=== PATIENT | female | born 1990 | race Caucasian/White ===

== ENCOUNTER 2020-06-08 09:11 | Outpatient (REF) | payer OTHER, SELFPAY ==
[2020-06-10 20:57] LABS: HPV mRNA E6/E7 Not Detected (Not Detected)
== END 2020-06-08 09:12 | disposition home or self-care (01) ==
LOC: HO.LAB 09:11
PROVIDERS: PCP Family Medicine; Visit Provider Obstetrics & Gynecology
DX: Z01.419 Encounter for gynecological examination (general) (routine) without abnormal findings (principal)
CPT/HCPCS: 87624; 88142

== ENCOUNTER 2021-06-12 09:40 | Outpatient (REF) | payer OTHER, SELFPAY ==
[2021-06-12 12:34] LABS: Syphilis Screen Nonreactive (Nonreactive)
[2021-06-12 12:40] LABS: HBsAGNum1 0.16 S/CO (0.00-0.99); HIV AB/AG Nonreactive (Nonreactive); HIV Num 1 0.05 S/CO (0.00-0.99); Hepatitis B Surface Antigen Negative (Negative); ~HepC Num1 0.21 S/CO (0.00-0.79); ~Hepatitis C Antibody Nonreactive (Nonreactive)
[2021-06-12 13:41] LABS: CT PCR NOT DETECTED (Not Detect.); NG PCR NOT DETECTED (Not Detect.)
[2021-06-13 09:17] LABS: BV Int Neg Control Negative (Negative); BV Int Pos Control Positive (Positive)
== END 2021-06-12 09:41 | disposition home or self-care (01) ==
LOC: HO.LAB 09:40
PROVIDERS: PCP Family Medicine; Visit Provider Obstetrics & Gynecology
DX: Z01.411 Encounter for gynecological examination (general) (routine) with abnormal findings (principal); Z11.4 Encounter for screening for human immunodeficiency virus [HIV]; B96.89 Other specified bacterial agents as the cause of diseases classified elsewhere; N76.0 Acute vaginitis
CPT/HCPCS: 36415; 86780; 86803; 87340; 87389; 87480; 87491; 87510; 87591; 87660

== ENCOUNTER 2021-07-13 15:03 | Outpatient (REF) | payer OTHER, SELFPAY ==
[2021-07-14 01:02] LABS: CT PCR NOT DETECTED (Not Detect.); NG PCR NOT DETECTED (Not Detect.)
[2021-07-14 09:13] LABS: BV Int Neg Control Negative (Negative); BV Int Pos Control Positive (Positive)
== END 2021-07-13 15:04 | disposition home or self-care (01) ==
LOC: HO.LAB 15:03
PROVIDERS: PCP Family Medicine; Visit Provider Advanced Practice Midwife
DX: N76.0 Acute vaginitis (principal); B96.89 Other specified bacterial agents as the cause of diseases classified elsewhere; R10.2 Pelvic and perineal pain
CPT/HCPCS: 87480; 87491; 87510; 87591; 87660; 99212

== ENCOUNTER 2021-08-08 12:53 | Outpatient (REF) | payer MEDICAID, SELFPAY ==
--- NOTE | ~2021-08-08 | US_ITS ---
EXAMINATION: US PELVIS CLINICAL INFORMATION: Pain. COMPARISON: Previous pelvic ultrasound February 2020. TECHNIQUE: Ultrasound of the pelvis is performed using both transabdominal and transvaginal transducers along with Doppler. Transvaginal imaging is performed due to inadequate visualization transabdominally. FINDINGS: The uterus is anteverted and measures 8.4 x 4 x 5.8 cm in dimension. There is an IUD in the uterus in satisfactory position. Endometrial thickness is normal measuring 1.2 cm. There are nabothian cysts in the cervix. The ovaries are normal-appearing. The left ovary measures 4.1 x 1.7 x 3.2 cm. The right ovary measures 2.7 x 2.2 x 1.9 cm. There is a small amount of fluid in the pelvis. US/US pelvic and transvaginal IMPRESSION: IUD in the uterus in satisfactory position.
== END 2021-08-08 12:54 | disposition home or self-care (01) ==
LOC: HO.US 12:53
PROVIDERS: Visit Provider Advanced Practice Midwife
DX: R10.2 Pelvic and perineal pain (principal)
CPT/HCPCS: 76830; 76856

== ENCOUNTER → 2021-08-21 13:50 | Outpatient (BNVA) | payer MEDICAID, SELFPAY | PROVIDERS: PCP Family Medicine; Visit Provider Advanced Practice Midwife | DX: R10.2 Pelvic and perineal pain (principal); N88.8 Other specified noninflammatory disorders of cervix uteri; Z71.2 Person consulting for explanation of examination or test findings; Z31.69 Encounter for other general counseling and advice on procreation | CPT/HCPCS: 99212 ==

== ENCOUNTER 2021-11-22 14:36 | Outpatient (REF) | payer MEDICAID, SELFPAY ==
[2021-11-23 15:48] LABS: BV Int Neg Control Negative (Negative); BV Int Pos Control Positive (Positive)
== END 2021-11-22 14:37 | disposition home or self-care (01) ==
LOC: HO.LAB 14:36
PROVIDERS: PCP Family Medicine; Visit Provider Advanced Practice Midwife
DX: R10.2 Pelvic and perineal pain (principal); N89.8 Other specified noninflammatory disorders of vagina
CPT/HCPCS: 87480; 87510; 87660; 99212

== ENCOUNTER 2022-04-18 13:13 | Outpatient (REF) | payer MEDICAID, SELFPAY ==
[2022-04-19 02:29] LABS: CT PCR NOT DETECTED (Not Detect.); NG PCR NOT DETECTED (Not Detect.)
[2022-04-19 13:45] LABS: BV Int Neg Control Negative (Negative); BV Int Pos Control Positive (Positive)
== END 2022-04-18 13:14 | disposition home or self-care (01) ==
LOC: HO.LNP 13:13
PROVIDERS: Visit Provider Advanced Practice Midwife
DX: Z11.3 Encounter for screening for infections with a predominantly sexual mode of transmission (principal); N89.8 Other specified noninflammatory disorders of vagina
CPT/HCPCS: 87480; 87491; 87510; 87591; 87660; 99212

== ENCOUNTER 2022-06-14 13:25 | Outpatient (REF) | payer MEDICAID, SELFPAY ==
[2022-06-15 10:10] LABS: BV Int Neg Control Negative (Negative); BV Int Pos Control Positive (Positive)
== END 2022-06-14 13:26 | disposition home or self-care (01) ==
LOC: HO.LNP 13:25
PROVIDERS: Visit Provider Advanced Practice Midwife
DX: N89.8 Other specified noninflammatory disorders of vagina (principal)
CPT/HCPCS: 87480; 87510; 87660

== ENCOUNTER 2022-06-22 12:47 | Outpatient (REF) | payer MEDICAID, SELFPAY ==
--- NOTE | ~2022-06-22 | US_ITS ---
EXAMINATION: US PELVIS CLINICAL INFORMATION: Pain COMPARISON: Previous exam most recent July 2021 TECHNIQUE: Ultrasound of the pelvis is performed using both transabdominal and transvaginal transducers along with Doppler. Transvaginal imaging is performed due to inadequate visualization transabdominally. FINDINGS: The uterus is anteverted and measures 8 x 4.6 x 5.6 cm in dimension. There is an IUD in the uterus in satisfactory. Endometrial thickness is normal measuring 1 cm. No focal uterine lesion is seen. There are nabothian cysts in the cervix. The right ovary measures 4 x 2 x 1.8 cm. The left ovary measures 3.5 x 2.7 x 1.9 cm. There is an involuting 1.6 x 1 x 1.3 cm left ovarian cyst. There is no fluid in the pelvis. US/US pelvic and transvaginal IMPRESSION: IUD in the uterus in satisfactory position. 1.6 x 1 x 1.3 cm involuting left ovarian cyst.
== END 2022-06-22 12:48 | disposition home or self-care (01) ==
LOC: HO.US 12:47
PROVIDERS: Visit Provider Advanced Practice Midwife
DX: R10.2 Pelvic and perineal pain (principal)
CPT/HCPCS: 76830; 76856

== ENCOUNTER → 2022-07-02 09:34 | Outpatient (BNVA) | payer MEDICAID, SELFPAY | PROVIDERS: Visit Provider Advanced Practice Midwife | DX: Z71.2 Person consulting for explanation of examination or test findings (principal); R10.2 Pelvic and perineal pain; Z87.42 Personal history of other diseases of the female genital tract | CPT/HCPCS: 99212 ==

== ENCOUNTER 2023-06-18 13:03 | Outpatient (REF) | payer MEDICAID, SELFPAY ==
[2023-06-19 13:20] LABS: BV Int Neg Control Negative (Negative); BV Int Pos Control Positive (Positive)
[2023-06-21 08:53] LABS: HPV mRNA E6/E7 rflx Not Detected (Not Detected)
== END 2023-06-18 13:04 | disposition home or self-care (01) ==
LOC: HO.LNP 13:03
PROVIDERS: PCP Family Medicine; Visit Provider Advanced Practice Midwife
DX: Z01.419 Encounter for gynecological examination (general) (routine) without abnormal findings (principal); N76.1 Subacute and chronic vaginitis
CPT/HCPCS: 87480; 87510; 87624; 87660; 88142

== ENCOUNTER 2023-06-18 13:03 | Outpatient (AMB) | payer MEDICAID, SELFPAY ==
--- NOTE | 2023-06-18 13:06 | A.OFFVIS_ITS ---
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 Doing well with concerns: She reports frequent yeast and bacteria infection (9) this year. She reports the last time she used Diflucan her lips were swollen that is not documented in the allergies today will additionally add that. She has tried boric acid in the past and does not feel that helps. She denies any other risk factors for chronic vaginitis. She tries to eat healthy and stays active with exercise. Monthly bleeding with the ParaGard. She denies vaginal itching, fishy odor and irritation. No pelvic pain or urinary discomfort. Denies family history of breast, ovarian or colon cancer. Last pap smear, was negative. [facility] Medical History Amputation of leg below knee, left, traumatic Employs prosthetic leg Family History Mother Diabetes Father Hyperlipidemia Household Members: Spouse and Children Housing: House Alcohol intake: never Patient Tobacco Use Status: Former Tobacco user Sexual orientation: Straight/Heterosexual Gender identity: Female Female Reproductive History Menstrual Age of Menarche: 15 Duration of menses: 3-5 days Date of last menstrual period: 05/23/23 control method: copper IUCD (Paragard 12/2016) Total pregnancies: 1 Full term: 1 Number of Living Children: 1 Date of last pap smear: 06/08/20 (neg pap and hpv) Review of Systems Const All systems reviewed & are unremarkable except as noted in HPI and below Reports as per HPI Eyes Reports no additional complaints ENT Reports no additional complaints Card Reports no additional complaints Resp Reports no additional complaints GI Reports as per HPI and Reports no additional complaints Reports as per HPI Musc Reports no additional complaints Skin/Breast Reports as per HPI Neuro Reports no additional complaints Psych Reports no additional complaints Endo Reports no additional complaints Iglesia/Lymph Reports no additional complaints Aller/Immun Reports no additional complaints Physical Exam Vital Signs: Last Vital Signs BP 90/54 L 06/18/23 13:08 BMI result Body Mass Index 20.6 Const General: cooperative, healthy appearing, no acute distress, well developed and alert Orientation/consciousness: patient oriented x3 HEENT Head: Yes normal to inspection Eyes General: appearance normal, both eyes and all related structures Neck Neck: Yes normal visual inspection Thyroid: Thyroid normal Chest Chest palpation & inspection: normal inspection of the chest and other (no puckering, dimpling, peau de orange, retraction, discharge, masses) Breast/axilla inspection: normal inspection of the breasts Breast/axilla palpation: normal palpation of the breasts Resp Effort & Inspection: normal respiratory effort GI Inspection: Yes normal to inspection Palpation (GI): Soft to palpation Rectal Exam - Female: deferred General: Yes bladder normal to palpation External Female Exam: normal external appearance and normal appearance of the urethra Speculum Exam - Vagina: normal appearance of the vagina, normal palpation, normal vaginal discharge and other (Erythema, white discharge) Speculum Exam - Cervix: normal appearance of the cervix and normal palpation Bimanual exam- vagina & uterus: normal bimanual exam, normal palpation, uterine size normal, bladder normal to palpation, normal palpation and non-tender Bimanual Exam- Adnexa, other: no masses Skin General skin exam: no rashes or lesions noted Rashes: no rashes Neuro General: patient oriented x3 Cognition (Neuro): normal cognition Extrem Other: Artificial limb left side General: Yes normal to inspection Psych Attitude: cooperative Thought process: Normal thought process present Assessment & Plan Assessment & Plan (1) Well woman exam: Code(s): Z01.419 - Encounter for gynecological examination (general) (routine) without abnormal findings (2) Vaginitis: Code(s): N76.0 - Acute vaginitis Qualifiers: Chronicity: chronic Qualified Code(s): N76.1 - Subacute and chronic vaginitis Plan Discussed: Current recommendations for pap smears per ASCCP guidelines. Breast awareness and periodic breast exams. Maintain a healthy lifestyle including a well balanced diet and routine exercise. All of her questions and concerns were addressed to the best of my ability. 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 Vaginal symptoms, self-care no soap or intimacy await test results for treatment plan. Orders: Orders Pap Smear Today Z01.419 - Encounter for gynecological examination (general) (routine) without abnormal findings Bacterial Vaginosis Panel Today N76.1 - Subacute and chronic vaginitis Coding Level of Care Code Est Pt Prev Care 18-39y(87014) Diagnoses Well woman exam Z01.419 Chronic vaginitis N76.1 Chronicity: chronic
[2023-06-18 13:08] VITALS: BP 90/54; BMI 20.6
== END 2023-06-18 13:46 | disposition home or self-care (01) ==
LOC: HO.HWS 13:03
PROVIDERS: PCP Family Medicine; Visit Provider Advanced Practice Midwife
DX: Z01.419 Encounter for gynecological examination (general) (routine) without abnormal findings (principal); N76.1 Subacute and chronic vaginitis
CPT/HCPCS: 99395

== ENCOUNTER 2023-06-18 13:39 | Outpatient (REF) | payer MEDICAID, SELFPAY | END 2023-06-18 13:40 | disposition home or self-care (01) | LOC: HO.LAB 13:39 | PROVIDERS: Visit Provider Advanced Practice Midwife | DX: Z13.89 Encounter for screening for other disorder (principal) ==

== ENCOUNTER 2023-07-16 08:02 | Outpatient (REF) | payer MEDICAID, SELFPAY ==
[2023-07-16 16:15] LABS: BV Int Neg Control Negative (Negative); BV Int Pos Control Positive (Positive)
== END 2023-07-16 08:03 | disposition home or self-care (01) ==
LOC: HO.LAB 08:02
PROVIDERS: PCP Family Medicine; Visit Provider Advanced Practice Midwife
DX: N76.0 Acute vaginitis (principal); B96.89 Other specified bacterial agents as the cause of diseases classified elsewhere
CPT/HCPCS: 87480; 87510; 87660; 99212

== ENCOUNTER 2023-07-16 08:02 | Outpatient (AMB) | payer MEDICAID, SELFPAY ==
--- NOTE | 2023-07-16 08:12 | A.OFFVIS_ITS ---
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 She reports she is starting to have symptoms again with a more productive discharge, no odor, urinary symptoms or pelvic pain. She is planning to restart the boric acid in use it for week. [facility] History Amputation of leg below knee, left, traumatic Employs prosthetic leg Family History Mother Diabetes Father Hyperlipidemia Social History Household Members: Spouse and Children Housing: House Alcohol intake: never Patient Tobacco Use Status: Former Tobacco user Sexual orientation: Straight/Heterosexual Gender identity: Female Female Reproductive History Menstrual Age of Menarche: 15 Date of last menstrual period: 06/27/23 Review of Systems Const All systems reviewed & are unremarkable except as noted in HPI and below Physical Exam Vital Signs: Last Vital Signs BP 90/60 07/16/23 08:18 BMI result Body Mass Index 20.6 Const General: cooperative, healthy appearing and no acute distress Orientation/consciousness: patient oriented x3 GI Inspection: Yes normal to inspection Palpation (GI): Soft to palpation and Other GI palpation findings present (Nontender) Rectal Exam - Female: visual inspection normal General: Yes bladder normal to palpation External Female Exam: normal appearance of the urethra Speculum Exam - Vagina: normal appearance of the vagina, normal palpation and normal vaginal discharge (Heavy amount of thick white creamy discharge) Speculum Exam - Cervix: normal appearance of the cervix and normal palpation Bimanual exam- vagina & uterus: normal bimanual exam, normal palpation, uterine size normal, bladder normal to palpation, normal palpation, uterine shape normal and non-tender Bimanual Exam- Adnexa, other: normal adnexae Neuro General: patient oriented x3 Assessment & Plan Assessment & Plan (1) Vaginal Discharge: Code(s): N89.8 - Other specified noninflammatory disorders of vagina Plan: BV panel sent, await results for plan of care. Use of boric acid to be continued. Follow up p.r.n. All of her questions and concerns were addressed to the best of my ability and shared decision making. She is agreeable to the plan of care. Coding Level of Care Code Est Pt Level 3 (71484) Diagnoses Vaginal Discharge N89.8
[2023-07-16 08:18] VITALS: BP 90/60; BMI 20.6
== END 2023-07-16 12:55 | disposition home or self-care (01) ==
PROVIDERS: PCP Family Medicine; Visit Provider Advanced Practice Midwife
DX: N89.8 Other specified noninflammatory disorders of vagina (principal)
CPT/HCPCS: 99213

== ENCOUNTER 2024-03-17 07:57 | Outpatient (RCR) | payer MEDICAID, SELFPAY | END 2024-05-05 11:51 | disposition home or self-care (01) | LOC: HO.PT 07:57 | PROVIDERS: PCP Family Medicine; Visit Provider Family Medicine | DX: R26.81 Unsteadiness on feet (principal); Z97.10 Presence of artificial limb (complete) (partial), unspecified | CPT/HCPCS: 97161 ==

== ENCOUNTER 2024-12-16 15:31 | Outpatient (REF) | payer OTHER, SELFPAY | END 2024-12-16 15:32 | disposition home or self-care (01) | LOC: HO.LNP 15:31 | PROVIDERS: PCP Family Medicine; Visit Provider Advanced Practice Midwife | DX: N93.9 Abnormal uterine and vaginal bleeding, unspecified (principal); Z32.02 Encounter for pregnancy test, result negative | CPT/HCPCS: 81025; 99212; 99395; 99459 ==

== ENCOUNTER 2024-12-16 16:12 | Outpatient (REF) | payer OTHER, SELFPAY ==
[2024-12-17 06:33] LABS: CT PCR NOT DETECTED (Not Detect.); NG PCR NOT DETECTED (Not Detect.)
[2024-12-17 11:45] LABS: Bacterial Vaginosis PCR NEGATIVE (Negative); Candida Group PCR DETECTED (Not Detect); Candida glab krusei PCR NOT DETECTED (Not Detect); Trichomonas vaginalis PCR NOT DETECTED (Not Detect)
== END 2024-12-16 16:13 | disposition home or self-care (01) ==
LOC: HO.LAB 16:12
PROVIDERS: Visit Provider Advanced Practice Midwife
DX: N93.9 Abnormal uterine and vaginal bleeding, unspecified (principal); Z32.02 Encounter for pregnancy test, result negative; Z30.431 Encounter for routine checking of intrauterine contraceptive device
CPT/HCPCS: 81515; 87491; 87591

== ENCOUNTER 2025-01-18 16:13 | Outpatient (REF) | payer OTHER, SELFPAY ==
--- NOTE | ~2025-01-18 | US_ITS ---
EXAMINATION: US PELVIS CLINICAL INFORMATION: Abnormal uterine bleeding COMPARISON: June 22, 2022 TECHNIQUE: Ultrasound of the pelvis is performed using both transabdominal and transvaginal transducers along with Doppler. Transvaginal imaging is performed due to inadequate visualization transabdominally. FINDINGS: Uterus: The uterus is anteverted and measures 9.9 x 3.7 x 4.9 cm. The double wall endometrial thickness is 9 mm. The uterus is smooth in contour and has normal myometrial echogenicity. No visible fibroid. Linear echogenic device is present in the upper uterine cavity consistent with an IUD. Adnexa: Both ovaries are visualized. There is normal color flow to the adnexa. There is no ovarian torsion. There is no pelvic ascites or fluid collection. Right ovary measures 2.7 x 1.3 x 1.4 cm. There is a dominant follicle. Left ovary measures 3.1 x 1.0 x 1.8 cm. US/US pelvic and transvaginal IMPRESSION: Appropriate positioned IUD. Electronically signed by: Adilson Razo MD 01/18/2025 05:36 PM EDT
== END 2025-01-18 16:14 | disposition home or self-care (01) ==
LOC: HO.US 16:13
PROVIDERS: PCP Family Medicine; Visit Provider Advanced Practice Midwife
DX: Z30.431 Encounter for routine checking of intrauterine contraceptive device (principal); N93.9 Abnormal uterine and vaginal bleeding, unspecified
CPT/HCPCS: 76830; 76856

== ENCOUNTER → 2025-01-18 16:14 | Outpatient (BNV) | payer OTHER, SELFPAY | PROVIDERS: PCP Family Medicine; Visit Provider Radiology Diagnostic Radiology | DX: N93.9 Abnormal uterine and vaginal bleeding, unspecified (principal); Z97.5 Presence of (intrauterine) contraceptive device | CPT/HCPCS: 76830; 76856 ==

== ENCOUNTER 2025-02-10 12:30 | Outpatient (AMB) | payer OTHER, SELFPAY ==
--- NOTE | 2025-02-10 12:31 | MHC.OFFVIS ---
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 Time spent included review of pertinent office notes in the electronic health record; review of laboratory and imaging results; review of personal family medical history; discussing diagnosis and plan of care with the patient; documenting the encounter in the EMR. Patient presents to discuss: Ultrasound follow up, history of abnormal bleeding. ParaGard user. Patient reports bleeding was normal last cycle and has no plans to change her control at this time. 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 Sexual orientation: Straight/Heterosexual Gender identity: Female Female Reproductive History Menstrual Age of Menarche: 15 Review of Systems Const All systems reviewed & are unremarkable except as noted in HPI and below Endo Reports no additional complaints Physical Exam Const General: cooperative, healthy appearing and no acute distress Psych Appearance: well kempt Attitude: cooperative Thought process: Normal thought process present Telehealth Telehealth Telehealth Platform: [facility] Location of provider rendering services: practice address Location of patient: address on file Patient Identification confirmed using: Name, : Yes Telehealth method: video Patient verbally consented to treatment: Yes Patient verbally consented to billing insurance company: Yes Patient informed of any privacy concerns related to visit: Yes Results Reviewed Results Reviewed: [address] [address] Ultrasound Report Signed Patient: Caitlyn Martinez MR#: [id number] : 1990 Acct:[id number] Age/Sex: 34 / F ADM Date: 01/18/25 Loc: HO.US Attending Dr: Hoda Torres CNM Ordering Physician: Hoda Torres CNM Date of Service: 01/18/25 Procedure(s): US pelvic and transvaginal Accession Number(s): [id number] cc: ERIN MÉNDEZ MD; Hoda Torres CNM~ EXAMINATION: US PELVIS CLINICAL INFORMATION: Abnormal uterine bleeding COMPARISON: June 22, 2022 TECHNIQUE: Ultrasound of the pelvis is performed using both transabdominal and transvaginal transducers along with Doppler. Transvaginal imaging is performed due to inadequate visualization transabdominally. FINDINGS: Uterus: The uterus is anteverted and measures 9.9 x 3.7 x 4.9 cm. The double wall endometrial thickness is 9 mm. The uterus is smooth in contour and has normal myometrial echogenicity. No visible fibroid. Linear echogenic device is present in the upper uterine cavity consistent with an IUD. Adnexa: Both ovaries are visualized. There is normal color flow to the adnexa. There is no ovarian torsion. There is no pelvic ascites or fluid collection. Right ovary measures 2.7 x 1.3 x 1.4 cm. There is a dominant follicle. Left ovary measures 3.1 x 1.0 x 1.8 cm. US/US pelvic and transvaginal IMPRESSION: Appropriate positioned IUD. 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 (2) Abnormal uterine bleeding (AUB): Code(s): N93.9 - Abnormal uterine and vaginal bleeding, unspecified Category: Medical Plan Advised to monitor menstrual cycles if pattern becomes up normal to report to the office and consider other options for contraception. The patient expressed understanding and agreement with the plan of care. All of her questions and concerns were addressed to the best of my ability. This note is constructed using voice recognition software. While every effort has been made to ensure accuracy, desktop administrator errors may have been included. Coding Level of Care Code Tele Est Pt Level 3 (56273) Diagnoses IUD surveillance Z30.431 Abnormal uterine bleeding (AUB) N93.9
== END 2025-02-10 15:26 ==
LOC: HO.HWS 12:30
PROVIDERS: PCP Family Medicine; Visit Provider Advanced Practice Midwife
DX: Z30.431 Encounter for routine checking of intrauterine contraceptive device (principal); N93.9 Abnormal uterine and vaginal bleeding, unspecified
CPT/HCPCS: 99213